=== PATIENT | female | born 1985 ===

== ENCOUNTER 2024-11-17 07:18 | Outpatient (CLI) | payer MEDICAID ==
[2024-11-17] VITALS (12 sets, daily range): BP systolic 128–168; BP diastolic 79–103; PULSE 79–165
== END 2024-11-17 23:59 | disposition home or self-care (01) ==
LOC: CARD DIAG 07:18
PROVIDERS: ATTEND Physician Assistant
DX: R42 Dizziness and giddiness (principal)
CPT/HCPCS: 93660